=== PATIENT | female | born 1970 | race Caucasian/White ===

== ENCOUNTER 2016-07-18 03:33 | Emergency (ER) | payer MEDICAID ==
[~2016-07-18] VITALS: Ht 160 cm; Wt 102.5 kg
[~2016-07-18 03:33] MED LIST: HYDR-3671 PO; RANI150T5 PO
[2016-07-18 03:43] VITALS: Ht 160 cm; Wt 102.5 kg
[2016-07-18] MEDS ORDERED: HYDR-906 PO (05:04)
[2016-07-18] MEDS ORDERED: IBUP-1542 PO (05:05)
[2016-07-18] MEDS ORDERED: HYDR30CR75 PR (05:05)
--- NOTE | 2016-07-18 05:10 | ERD ---
ER Documentation Chief Complaint Date/Time DATE: 07/18/16 TIME: 05:06 Chief Complaint Hemorrhoids x2 wks. no bleeding but itching HPI Patient is a 46-year-old female with a past medical history of hypertension, hemorrhoids who presents emergency department with rectal pain. Patient states that she has had rectal pain for 2 weeks now. Patient saw her physician at that time onset of her pain and was diagnosed with hemorrhoids. She states that she has difficulty sitting down secondary to the pain. She states her current pain level is a 4 out of 10. Patient states that she has been using naproxen, Preparation H and Nikzon hemorrhoid cream, topical lidocaine gel with no alleviation of pain. Patient reports itching in the anal region. Patient reports regular daily bowel movements. She denies any straining. She denies any rectal bleeding. Patient denies any headache, blurry vision, chest pain, shortness of breath or loss of consciousness. Patient denies any fever, chills , nausea, vomiting, abdominal pain, diarrhea. ROS All systems reviewed and are negative except as per history of present illness. Medications Home Meds Active Scripts Hydrocortisone Acetate* (Anusol-HC*) 30 Gm Cream.gm., 1 APPLIC MO BID, #1 TUB Prov:MONSERRAT MONTES PA-C 07/18/16 Ibuprofen* (Ibuprofen*) 600 Mg Tablet, 600 MG PO Q6, #20 TAB Prov:MONSERRAT MONTES PA-C 07/18/16 Hydrocodone/Acetaminophen (Sorento 5-325 Tablet) 1 Each Tablet, 1 TAB PO Q6H Y for PAIN, #10 TAB Prov:MONSERRAT MONTES PA-C 07/18/16 Hydralazine Hcl* (Hydralazine Hcl*) 25 Mg Tab, 25 MG PO Q6, #120 TAB Prov:CARMELLA OLIVIER 01/07/16 Reported Medications Ranitidine Hcl* (Ranitidine Hcl*) 150 Mg Tablet, 300 MG PO HS, #60 TAB 01/07/16 Allergies Allergies: Coded Allergies: No Known Allergy (Unverified , 01/07/16) PMhx/Soc History of Surgery: Yes (C SECTION, tummy tuck) Anesthesia Reaction: No Hx Neurological Disorder: No Hx Respiratory Disorders: No Hx Cardiac Disorders: No Hx Psychiatric Problems: No Hx Miscellaneous Medical Probl: Yes (HTN) Hx Alcohol Use: No Hx Substance Use: No Hx Tobacco Use: No FmHx Family History: No diabetes Physical Exam Vitals Vital Signs Date Time Temp Pulse Resp B/P Pulse Ox O2 Delivery O2 Flow Rate FiO2 07/18/16 05:27 98.0 87 18 102/53 98 Room Air 07/18/16 03:43 97.3 74 18 199/93 98 Physical Exam General: Well-developed, well-nourished female. Appears in no acute distress. Head: Normocephalic, atraumatic. Eyes: Pupils are equally reactive bilaterally. EOMs grossly intact. No conjunctival erythema. ENT: Moist mucous membranes. Neck: Supple. No lymphadenopathy or thyromegaly. No meningeal signs. Lungs: Clear to auscultation bilaterally. No rhonchi, wheezing, rales or coarse breath sounds. Heart: Regular rate and rhythm. No murmurs, rubs or gallops. Abdomen: Soft, nontender, and nondistended. No rebound tenderness, no guarding. Negative McBurney's point tenderness. No CVA tenderness. RECTAL: Normal anus with external hemorrhoids noted. Normal anal sphincter tone. No prolapse. Unable to rule out internal hemorrhoids at this time. Extremities: No pedal edema, unilateral leg swelling. 5/5 strength in all extremities. Neurologic: Alert and oriented x3. Moving all four extremities. Normal speech. Steady gait. Skin: Normal color. Warm and dry. No rashes or lesions. Results 24 hrs Current Medications Medications (Trade) Dose Ordered Sig/Thomas Route PRN Reason Start Time Stop Time Status Last Admin Dose Admin Acetaminophen/ Hydrocodone Bitart (Sorento (5/325)) 1 tab ONCE ONCE PO 07/18/16 05:30 07/18/16 05:31 DC 07/18/16 05:09 Procedures/MDM MEDICAL DECISION MAKING: Patient is a 46-year-old female with past medical history of hemorrhoids who presents emergency department with rectal pain 2 weeks. Vital signs were reviewed. Patient is afebrile. Physical exam findings revealed external hemorrhoid. No active bleeding. No rectal prolapse. Patient was given Sorento for her current pain. Patient reported improvement in pain. At this time, the patient's presentation is most consistent with external hemorrhoids. Unable to rule out internal hemorrhoids. Low suspicion for anorectal abscess, anal fissure, anal fistula, rectal foreign body, pilonidal cyst, IBD. I had a discussion with the patient but the long-term solution for her ongoing hemorrhoids is to see a GI specialist for possible rubber band ligation. Referral list with GI specialists were given to the patient. Supportive measures including sitz baths, topical ointment use discussed with the patient. PRESCRIPTION: Sorento, ibuprofen, Anusol cream DISCHARGE: At this time, patient is stable for discharge and outpatient management. I have instructed the patient to follow-up with his/her primary care physician in 1-2 days. I have discussed with the patient the possibility of needing to see a GI specialist for further workup and treatment if symptoms persist. I have instructed the patient to promptly return to the ER for any new or worsening symptoms including increased pain, fever, nausea, vomiting, weakness or LOC. The patient and/or family expressed understanding of and agreement with this plan. All questions were answered. Home care instructions were provided. Patient's blood pressure was elevated (>120/80) but appears stable without evidence of hypertensive emergency, hypertensive urgency or end-organ failure. I had discussion with the patient about the risks of hypertension. I have advised the patient to follow up with his/her primary care physician for outpatient monitoring and treatment for hypertension in 2-3 days. I have instructed the patient to return to the ER for any new or worsening symptoms including chest pain, shortness of breath, headache, blurred vision, confusion, nausea, vomiting or LOC. Departure Diagnosis: Primary Impression: Hemorrhoid Hemorrhoid type: unspecified Qualified Code: K64.9 - Hemorrhoids, unspecified hemorrhoid type Condition: Stable Patient Instructions: Hemorrhoids Referrals: TAMI DELATORRE MD, NAGARAJ M MD CHITAYAT, RON DESAI,HETAL MILLAN,TEREZA XIAO,CORRIE MAGUIRE MD,YANG LAZARO,YOEL MAGANA [facility] YOU HAVE RECEIVED A MEDICAL SCREENING EXAM AND THE RESULTS INDICATE THAT YOU DO NOT HAVE A CONDITION THAT REQUIRES URGENT TREATMENT IN THE EMERGENCY DEPARTMENT. FURTHER EVALUATION AND TREATMENT OF YOUR CONDITION CAN WAIT UNTIL YOU ARE SEEN IN YOUR DOCTORS OFFICE WITHIN THE NEXT 1-2 DAYS. IT IS YOUR RESPONSIBILITY TO MAKE AN APPOINTMENT FOR FOLOW-UP CARE. IF YOU HAVE A PRIMARY DOCTOR --you should call your primary doctor and schedule an appointment IF YOU DO NOT HAVE A PRIMARY DOCTOR YOU CAN CALL OUR PHYSICIAN REFERRAL HOTLINE AT IF YOU CAN NOT AFFORD TO SEE A PHYSICIAN YOU CAN CHOSE FROM THE FOLLOWING [facility] [address] [facility] [address] [facility] [address] [facility] [address] [facility] [address] [facility] [facility] [facility] [address] [facility] [facility] YOU HAVE RECEIVED A MEDICAL SCREENING EXAM AND THE RESULTS INDICATE THAT YOU DO NOT HAVE A CONDITION THAT REQUIRES URGENT TREATMENT IN THE EMERGENCY DEPARTMENT. FURTHER EVALUATION AND TREATMENT OF YOUR CONDITION CAN WAIT UNTIL YOU ARE SEEN IN YOUR DOCTORS OFFICE WITHIN THE NEXT 1-2 DAYS. IT IS YOUR RESPONSIBILITY TO MAKE AN APPOINTMENT FOR FOLOW-UP CARE. IF YOU HAVE A PRIMARY DOCTOR --you should call your primary doctor and schedule and appointment IF YOU DO NOT HAVE A PRIMARY DOCTOR YOU CAN CALL OUR PHYSICIAN REFERRAL HOTLINE AT . IF YOU CAN NOT AFFORD TO SEE A PHYSICIAN YOU CAN CHOSE FROM THE FOLLOWING [facility] INSTITUTIONS[facility] [address] [place] [address] [facility] [address] [place] [address] [facility] [address] [place] [address] Additional Instructions: Llame al doctor MAANA y ade tiki ROSE MARY PARA DENTRO DE 1-2 SKINNER.Dgale a la secretaria que nosotros le instruimos hacer esta rose mary.Avise o llame si rajput condicin se empeora antes de la rose mary. Regresa aqui si peor o no mejor. Necesita va un specialista de GI. Renea listo. MONSERRAT MONTES PA-C Jul 18, 2016 05:10
[2016-07-18 05:27] VITALS: BP 102/53; PULSE 87; RESP 18; TEMP 98
[2016-07-18] MEDS ORDERED: HYDROCODONE/APAP (5/325) TAB PO ONE (05:30)
== END 2016-07-18 05:27 | disposition home or self-care (01) ==
LOC: FTE 03:33
DX: K64.9 Unspecified hemorrhoids (principal); I10 Essential (primary) hypertension
CPT/HCPCS: Z7502; Z7610; 99283

== ENCOUNTER 2017-11-03 07:39 | Emergency (ER) | END 2017-11-03 18:33 | disposition home or self-care (01) ==